=== PATIENT | male | born 1995 | race Caucasian/White ===

== ENCOUNTER 2021-10-19 00:10 | Emergency (ER) | payer SELFPAY ==
[~2021-10-19] VITALS: Ht 182.9 cm; Wt 72.6 kg
[2021-10-19 00:10] VITALS: BP 134/86
--- NOTE | 2021-10-19 00:12 | NUR ---
BIB [facility] TAKEN TO [facility]
--- NOTE | 2021-10-19 02:02 | NUR ---
PATIENT BIB [facility] POLICE DEPT. PATIENT EXAMINED BY DR. AGUILAR. PATIENT MEDICALLY CLEARED AND RELEASED IN CUSTODY IN STABLE CONDITION. ORIGINAL PRE-BOOK FORM GIVEN TO [facility], #17081.
== END 2021-10-19 02:02 ==
LOC: MED 00:10
DX: S00.81XA Abrasion of other part of head, initial encounter (principal); M25.562 Pain in left knee; Z02.89 Encounter for other administrative examinations; V89.2XXA Person injured in unspecified motor-vehicle accident, traffic, initial encounter; Y93.89 Activity, other specified; Y92.89 Other specified places as the place of occurrence of the external cause; Y99.8 Other external cause status
CPT/HCPCS: 70450; 72125; 73560; 99284; Q0092